=== PATIENT | female | born 1995 | race Caucasian/White ===

== ENCOUNTER 2019-05-13 11:38 | Outpatient (CLI) | payer OTHER ==
[~2019-05-13] VITALS: Ht 167.6 cm; Wt 88.6 kg
[2019-05-13 12:11] VITALS: BP 126/60
[2019-05-13 12:11] LABS: BASOPHILS # (AUTO) 0.01 x10^3/uL (0-0.1); BASOPHILS % (AUTO) 0 % (0-1); EOSINOPHILS # (AUTO) 0.05 x10^3/uL (0-0.4); EOSINOPHILS % (AUTO) 1 % (1-7); LYMPHOCYTES # (AUTO) 1.47 x10^3/uL (1-3.4); LYMPHOCYTES % (AUTO) 19 % (22-44); MD NO; MEAN CORPUSCULAR HEMOGLOBIN 31.5 pg (27.0-34.8); MEAN CORPUSCULAR VOLUME 92.6 fL (80-100); MEAN PLATELET VOLUME 7.9 fL (7.4-10.4); MONOCYTES # (AUTO) 0.63 x10^3/uL (0.2-0.8); MONOCYTES % (AUTO) 8 % (2-9); NEUTROPHILS # (AUTO) 5.64 x10^3/uL (1.8-6.8); NEUTROPHILS % (AUTO) 72 % (42-75); PLATELET COUNT 212 x10^3/uL (130-400); RED BLOOD COUNT 4.55 x10^6/uL (3.82-5.3); RED CELL DISTRIBUTION WIDTH 13.7 % (9.6-15.2)
[2019-05-13 12:15] LABS: MICROSCOPIC NOT IND
[2019-05-13 12:21] LABS: ALANINE AMINOTRANSFERASE 24 U/L (12-78); ALBUMIN 2.7 g/dL (3.4-5.0); ANION GAP 6 mmol/L (5-15); BILIRUBIN, DIRECT 0.1 mg/dL (0.1-0.2); CALCIUM 8.8 mg/dL (8.5-10.1); CHLORIDE 110 mmol/L (98-107)
[2019-05-13 12:24] LABS: ALKALINE PHOSPHATASE 214 U/L (45-117); BILIRUBIN,TOTAL 0.8 mg/dL (0.2-1.0); TOTAL PROTEIN 6.5 g/dL (6.4-8.2)
[2019-05-13 12:48] LABS: CREATININE,URINE RANDOM 16.8 mg/dL
== END 2019-05-13 13:45 | disposition home or self-care (01) ==
LOC: LDOP 11:38
PROVIDERS: ATTEND Obstetrics & Gynecology
DX: Z34.93 Encounter for supervision of normal pregnancy, unspecified, third trimester (principal); Z3A.49 Greater than 42 weeks gestation of pregnancy
CPT/HCPCS: 36415; 59025; 80053; 81003; 81050; 82248; 82570; 84156; 84550; 85025; 99211; G0463

== ENCOUNTER 2019-05-28 09:43 | Outpatient (CLI) | payer OTHER ==
[~2019-05-28] VITALS: Ht 165.1 cm; Wt 88.6 kg
[2019-05-28 09:53] VITALS: BP 127/58
[2019-05-28 11:05] LABS: BASOPHILS # (AUTO) 0.02 x10^3/uL (0-0.1); BASOPHILS % (AUTO) 0 % (0-1); EOSINOPHILS # (AUTO) 0.06 x10^3/uL (0-0.4); EOSINOPHILS % (AUTO) 1 % (1-7); LYMPHOCYTES # (AUTO) 1.54 x10^3/uL (1-3.4); LYMPHOCYTES % (AUTO) 18 % (22-44); MD NO; MEAN CORPUSCULAR HEMOGLOBIN 30.8 pg (27.0-34.8); MEAN CORPUSCULAR HGB CONC 33.3 g/dL (32.4-35.8); MEAN CORPUSCULAR VOLUME 92.3 fL (80-100); MEAN PLATELET VOLUME 8.2 fL (7.4-10.4); MONOCYTES # (AUTO) 0.76 x10^3/uL (0.2-0.8); MONOCYTES % (AUTO) 9 % (2-9); NEUTROPHILS # (AUTO) 6.21 x10^3/uL (1.8-6.8); NEUTROPHILS % (AUTO) 72 % (42-75); PLATELET COUNT 217 x10^3/uL (130-400); RED BLOOD COUNT 4.68 x10^6/uL (3.82-5.3); RED CELL DISTRIBUTION WIDTH 13.4 % (9.6-15.2)
[2019-05-28] MEDS ORDERED: ACETAMINOPHEN 325 MG TABLET PO PRN (11:30)
[2019-05-28] MEDS ORDERED: ACETAMINOPHEN 325 MG TABLET ONE (11:31)
== END 2019-05-28 12:40 | disposition home or self-care (01) ==
LOC: LDOP 09:43
PROVIDERS: ATTEND Obstetrics & Gynecology
DX: O9A.213 Injury, poisoning and certain other consequences of external causes complicating pregnancy, third trimester (principal); Z3A.49 Greater than 42 weeks gestation of pregnancy; W19.XXXA Unspecified fall, initial encounter; Y93.89 Activity, other specified; Y92.89 Other specified places as the place of occurrence of the external cause; Y99.8 Other external cause status
CPT/HCPCS: 36415; 59025; 85025; 99211; G0463

== ENCOUNTER 2019-05-30 07:29 | Inpatient (IN) | payer OTHER ==
[~2019-05-30] VITALS: Ht 167.6 cm; Wt 88.6 kg
[2019-05-30] MEDS ORDERED: MISOPROSTOL 25 MCG TABLET ONE (20:00)
[2019-05-30] MEDS ORDERED: OXYTOCIN 30U/ 0.9% NaCL 500ML 500 ML IV ONE (20:14)
[2019-05-30] MEDS: D5%-LACTATED RINGERS 1,000 ML IV SCH (20:14)
[2019-05-30] MEDS ORDERED: SODIUM CITRATE/CITRIC ACID 30 ML UDC PO PRN (20:30)
[2019-05-30] MEDS ORDERED: METOCLOPRAMIDE 5 MG/ML, 2ML IVPush PRN (20:30)
[2019-05-30] MEDS ORDERED: ONDANSETRON 2MG/ML, 2ML IVPush PRN (20:30)
[2019-05-30] MEDS ORDERED: CALCIUM CARBONATE 500 MG TAB.CHEW PO PRN (20:30)
[2019-05-30] MEDS ORDERED: FENTANYL PF 100 MCG/2ML IV PRN (20:30)
[2019-05-30] MEDS ORDERED: TERBUTALINE 1 MG/ML, 1ML IVPush PRN (20:30)
[2019-05-30] MEDS ORDERED: TERBUTALINE 1 MG/ML, 1ML SQ PRN (20:30)
[2019-05-30 20:34] VITALS: BP 135/64
[2019-05-30 20:40] LABS: MICROSCOPIC NOT IND
[2019-05-30 20:55] LABS: PROTEIN/CREATININE RATIO,URINE < 360 (0-200); TOTAL PROTEIN,URINE RANDOM < 5 mg/dL (0-12)
[2019-05-30] MEDS: MISOPROSTOL 25 MCG TABLET VG PRN (20:58)
[2019-05-30] MEDS: LACTATED RINGERS 1,000 ML IV SCH (20:59)
[2019-05-30 21:01] LABS: BASOPHILS # (AUTO) 0.03 x10^3/uL (0-0.1); BASOPHILS % (AUTO) 0 % (0-1); EOSINOPHILS # (AUTO) 0.08 x10^3/uL (0-0.4); EOSINOPHILS % (AUTO) 1 % (1-7); LYMPHOCYTES # (AUTO) 1.94 x10^3/uL (1-3.4); LYMPHOCYTES % (AUTO) 21 % (22-44); MD NO; MEAN CORPUSCULAR HEMOGLOBIN 31.3 pg (27.0-34.8); MEAN CORPUSCULAR HGB CONC 33.4 g/dL (32.4-35.8); MEAN CORPUSCULAR VOLUME 93.7 fL (80-100); MEAN PLATELET VOLUME 8.3 fL (7.4-10.4); MONOCYTES # (AUTO) 0.84 x10^3/uL (0.2-0.8); MONOCYTES % (AUTO) 9 % (2-9); NEUTROPHILS # (AUTO) 6.49 x10^3/uL (1.8-6.8); NEUTROPHILS % (AUTO) 69 % (42-75); PLATELET COUNT 215 x10^3/uL (130-400); RED CELL DISTRIBUTION WIDTH 13.6 % (9.6-15.2)
[2019-05-30 21:08] LABS: ALANINE AMINOTRANSFERASE 22 U/L (12-78); ALBUMIN 2.5 g/dL (3.4-5.0); ANION GAP 6 mmol/L (5-15); BILIRUBIN, DIRECT 0.1 mg/dL (0.1-0.2); CALCIUM 8.8 mg/dL (8.5-10.1); CHLORIDE 110 mmol/L (98-107); CREATININE 0.57 mg/dL (0.55-1.02)
[2019-05-30 21:11] LABS: ALKALINE PHOSPHATASE 224 U/L (45-117); BILIRUBIN,TOTAL 0.6 mg/dL (0.2-1.0); TOTAL PROTEIN 6.2 g/dL (6.4-8.2)
[2019-05-31] MEDS ORDERED: MISOPROSTOL 25 MCG TABLET ONE ×2 (01:20→06:03)
[2019-05-31] MEDS ORDERED: NEWBORN KIT ONE (01:21)
[2019-05-31] MEDS: MISOPROSTOL 25 MCG TABLET VG PRN ×2 (01:33→06:39)
[2019-05-31] MEDS: D5%-LACTATED RINGERS 1,000 ML IV SCH ×3 (04:14→20:14)
[2019-05-31] MEDS: LACTATED RINGERS 1,000 ML IV SCH ×3 (04:14→20:05)
[2019-05-31] MEDS ORDERED: OXYTOCIN 30U/ 0.9% NaCL 500ML 500 ML ONE (14:02)
[2019-05-31] MEDS ORDERED: FENTANYL PF 100 MCG/2ML ONE ×3 (14:50→22:53)
[2019-05-31] MEDS: FENTANYL PF 100 MCG/2ML IVPush PRN ×2 (14:53→15:50)
[2019-05-31 19:23] VITALS: BP 135/67
[2019-05-31] MEDS ORDERED: FENTANYL/BUPIV./NS/PF 250 ML EPIDCONT SCH (20:05)
[2019-05-31] MEDS ORDERED: FENTANYL PF 500 MCG, BUPIVACAINE/PF 0.5%, 30ML 62.5 ML in SODIUM CHLORIDE 0.9% 177.5 ML EPIDCONT SCH (20:30)
[2019-05-31] MEDS ORDERED: BUPIVACAINE 0.25% ONE ×2 (20:44→22:53)
[2019-06-01] MEDS ORDERED: IBUPROFEN 800 MG TABLET PO PRN (01:30)
[2019-06-01] MEDS ORDERED: RHOGAM FROM BLOOD BANK 1 NOTE EA IM/IV ONE (01:30)
[2019-06-01] MEDS ORDERED: OXYcodone/APAP 5/325MG TABLET PO PRN (01:30)
[2019-06-01] MEDS ORDERED: HYDROcodone/APAP 5/325 TABLET PO PRN (01:30)
[2019-06-01] MEDS ORDERED: MISOPROSTOL 200 MCG TABLET PR PRN (01:30)
[2019-06-01] MEDS ORDERED: DOCUSATE 100 MG CAPSULE PO PRN (01:30)
[2019-06-01] MEDS ORDERED: ONDANSETRON 2MG/ML, 2ML IV PRN (01:30)
[2019-06-01] MEDS ORDERED: ACETAMINOPHEN 325 MG TABLET PO PRN (01:30)
[2019-06-01] MEDS ORDERED: BISACODYL 10 MG SUPP PR PRN (01:30)
[2019-06-01] MEDS ORDERED: OXYTOCIN 30U/ 0.9% NaCL 500ML 500 ML ONE (01:34)
[2019-06-01] MEDS ORDERED: IBUPROFEN 600 MG TABLET ONE (01:34)
[2019-06-01] MEDS: OXYTOCIN 30U/ 0.9% NaCL 500ML 500 ML IV SCH ×3 (01:36→21:27)
[2019-06-01 03:57] VITALS: BP 124/77
[2019-06-01 07:42] VITALS: BP 108/71
[2019-06-01 09:07] LABS: MEAN CORPUSCULAR HEMOGLOBIN 30.9 pg (27.0-34.8); MEAN CORPUSCULAR HGB CONC 33.4 g/dL (32.4-35.8); MEAN CORPUSCULAR VOLUME 92.4 fL (80-100); MEAN PLATELET VOLUME 8.1 fL (7.4-10.4); PLATELET COUNT 193 x10^3/uL (130-400); RED BLOOD COUNT 4.32 x10^6/uL (3.82-5.3); RED CELL DISTRIBUTION WIDTH 13.8 % (9.6-15.2)
[2019-06-01 09:29] LABS: BASOPHILS # (AUTO) 0.03 x10^3/uL (0-0.1); BASOPHILS % (AUTO) 0 % (0-1); EOSINOPHILS # (AUTO) 0.02 x10^3/uL (0-0.4); EOSINOPHILS % (AUTO) 0 % (1-7); LYMPHOCYTES # (AUTO) 1.37 x10^3/uL (1-3.4); LYMPHOCYTES % (AUTO) 10 % (22-44); MD SCAN; MONOCYTES # (AUTO) 1.02 x10^3/uL (0.2-0.8); MONOCYTES % (AUTO) 7 % (2-9); NEUTROPHILS # (AUTO) 11.49 x10^3/uL (1.8-6.8); NEUTROPHILS % (AUTO) 83 % (42-75)
[2019-06-01] MEDS: PRENATAL VIT/IRON/FA 1 EACH TABLET PO SCH (11:17)
[2019-06-01 12:00] VITALS: BP 110/69
[2019-06-01 20:00] VITALS: BP 134/76
[2019-06-02] VITALS: BP 118/72
[2019-06-02 08:00] VITALS: BP 127/76
[2019-06-02] MEDS: PRENATAL VIT/IRON/FA 1 EACH TABLET PO SCH (09:54)
[2019-06-02] MEDS ORDERED: IBUP-1222 PO (10:41)
== END 2019-06-02 12:35 | disposition home or self-care (01) | DRG 807 ==
LOC: LDIP 19:49 → 2NW 06-01 03:10
PROVIDERS: ADMIT Obstetrics & Gynecology; ATTEND Obstetrics & Gynecology
PROC: 10E0XZZ Delivery of Products of Conception, External Approach (ICD-10-PCS; principal; 2019-05-31)
PROC: 10907ZC Drainage of Amniotic Fluid, Therapeutic from Products of Conception, Via Natural or Artificial Opening (ICD-10-PCS; 2019-05-31)
PROC: 3E033VJ Introduction of Other Hormone into Peripheral Vein, Percutaneous Approach (ICD-10-PCS; 2019-05-31)
PROC: 3E0R3BZ Introduction of Anesthetic Agent into Spinal Canal, Percutaneous Approach (ICD-10-PCS; 2019-05-31)
PROC: 00HU33Z Insertion of Infusion Device into Spinal Canal, Percutaneous Approach (ICD-10-PCS; 2019-05-31)
PROC: 0UQMXZZ Repair Vulva, External Approach (ICD-10-PCS; 2019-05-31)
DX: O69.81X0 Labor and delivery complicated by cord around neck, without compression, not applicable or unspecified (principal); Z37.0 Single live birth; J45.909 Unspecified asthma, uncomplicated; O13.4 Gestational [pregnancy-induced] hypertension without significant proteinuria, complicating childbirth; O77.0 Labor and delivery complicated by meconium in amniotic fluid; O99.52 Diseases of the respiratory system complicating childbirth; Z3A.39 39 weeks gestation of pregnancy; O70.0 First degree perineal laceration during delivery
CPT/HCPCS: 36415; S0020; 80053; 81003; 82248; 82570; 84156; 84550; 85025; 86850; 86900; G0378; J3010; J2590; J7050; J7120

== ENCOUNTER 2021-03-09 11:47 | Outpatient (CLI) | payer OTHER ==
[~2021-03-09] VITALS: Ht 172.7 cm; Wt 82.7 kg
[~2021-03-09 11:47] MED LIST: IBUP-1222 PO
[2021-03-09 12:21] VITALS: BP 114/59
== END 2021-03-09 14:10 | disposition home or self-care (01) ==
LOC: LDOP 11:47
PROVIDERS: ATTEND Obstetrics & Gynecology
DX: Z34.93 Encounter for supervision of normal pregnancy, unspecified, third trimester (principal); Z3A.28 28 weeks gestation of pregnancy
CPT/HCPCS: 59025